=== PATIENT | female | born 1940 | race Caucasian/White ===

== ENCOUNTER 2016-09-08 11:41 | Day surgery (SDC) | payer OTHER ==
--- NOTE | ~2016-09-08 | EGD ---
EGD REPORT [facility] [address] [address] NAME: VERONICA HUSSEIN : 40 STATUS : REG [facility]#: [id number] AGE: 76 ADM/REG DATE : 09/08/16 MR#: [id number] REPORT SERV DATE: 09/08/16 DICTATED BY: VINICIO MUNOZ DATE: 09/08/16 REPORT STATUS : Draft TRANSCRIBED BY: [facility] DATE: 09/08/16 Endoscopy Center Patient Name: Veronica Hussein Date of : 1940 Attending MD: VINICIO MUNOZ MD Procedure Date No Time: 09/08/2016 Procedure: Colonoscopy Indications: Surveillance: Personal history of adenomatous polyps on last colonoscopy > 5 years ago Referring MD: BETI FERNANDEZ Medicines: Propofol per Anesthesia Complications: No immediate complications. Procedure: Pre-Anesthesia Assessment: - ASA Grade Assessment: IV - A patient with severe systemic disease that is a constant threat to life. After I obtained informed consent, the scope was passed under direct vision. Throughout the procedure, the patient's blood pressure, pulse, and oxygen saturations were monitored continuously. The [id number] was introduced through the anus and advanced to the cecum, identified by appendiceal orifice and ileocecal valve. The colonoscopy was performed without difficulty. The patient tolerated the procedure well. The quality of the bowel preparation was good. Findings: The perianal and digital rectal examinations were normal. The colon (entire examined portion) appeared normal. A sessile polyp was found in the cecum. The polyp was 2 mm in size. The polyp was removed with a cold biopsy forceps. Resection and retrieval were complete. Multiple small and large-mouthed diverticula were found in the recto-sigmoid colon, in the sigmoid colon and in the descending colon. Non-bleeding internal hemorrhoids were found during retroflexion and were mild, small and Grade I (internal hemorrhoids that do not prolapse). Impression: - The entire examined colon is normal. - One 2 mm polyp in the cecum. Resected and retrieved. - Diverticulosis in the recto-sigmoid colon, in the sigmoid colon and in the descending colon. - Non-bleeding internal hemorrhoids. Recommendation: - Patient has a contact number available for emergencies. The signs and symptoms of potential delayed complications were discussed with the patient. Return to EGD REPORT [address] [address] NAME: VERONICA HUSSEIN RONNY : 40 STATUS : REG [facility]#: [id number] AGE: 76 ADM/REG DATE : 09/08/16 MR#: [id number] REPORT SERV DATE: 09/08/16 DICTATED BY: VINICIO MUNOZ DATE: 09/08/16 REPORT STATUS : Draft TRANSCRIBED BY: [facility] DATE: 09/08/16 normal activities tomorrow. Written discharge instructions were provided to the patient. - Return to previous diet. - Continue present medications. - Await pathology results. - Repeat colonoscopy in 3 - 5 years for surveillance based on pathology results. - Return to my office as previously scheduled. - Discharge patient to home. Procedure Code(s): --- Professional --- 97179, Colonoscopy, flexible, proximal to splenic flexure; with biopsy, single or multiple Diagnosis Code(s): --- Professional --- K64.0, First degree hemorrhoids K57.30, Diverticulosis of large intestine without perforation or abscess without bleeding D12.0, Benign neoplasm of cecum Z86.010, Personal history of colonic polyps CPT copyright 2013 [employer]. All rights reserved. The codes documented in this report are preliminary and upon tonguer review may be revised to meet current compliance requirements. Vinicio Munoz MD VINICIO MUNOZ MD 09/08/2016 3:16 PM This report has been signed electronically. Number of Addenda: 0 Note Initiated On: 09/08/2016 2:33 PM Scope Withdrawal Time 0 hours 8 minutes 36 seconds [id number] [place] [address]
[~2016-09-08 11:41] MED LIST: ASAB PO; BENTYL20 PO; CAT2 PO; COREG25 PO; DEMA10T PO; DIOVAN HC2 PO; EXFORGE1 TA3 PO; EXFORGE1 TAB PO; GLUCOPHXR PO; GLUCPH PO; HYDROCHLOROT25 MG PO; KAPIDEX60 MG PO; KLOR-CON M2020 MEQ PO; LANTUS SC; LANTUSCART SC; LOP25 PO; LOP50 PO; MAGOX4 PO; MEVACOR PO; NEUR100 PO; NEXIUM40 PO; NORV10 PO; NOVOPEN SC; PLAVIX PO; PRADAXA150 MG PO; PRADAXA75 MG PO; PRAVACHOL40 MG PO; RAN500 PO; RANITIDINE300 MG PO; RYTHMOL SR225 MG PO; SUCR PO; SYN.15 PO; SYN125 PO; SYNTHROID175 MCG PO; TAMBOCOR PO; TEKTUR150 PO; VITAMIN B-121000 MC1 SL; VITAMIN D31000 UNIT PO; VITAMIN D32000 UNI1 PO; VITC500 PO; VOLTAREN1 % TOP; VOLTXR100 PO; ZANAFLEX 4 MG TA4 MG PO; ZOCOR10 PO; ZOCOR40 PO
== END 2016-09-08 23:59 | disposition home or self-care (01) ==
LOC: DMU 11:41
PROVIDERS: Internal Medicine Gastroenterology
PROC: 0DBH8ZX Excision of Cecum, Via Natural or Artificial Opening Endoscopic, Diagnostic (ICD-10-PCS; principal; 2016-09-08 11:30)
DX: D12.0 Benign neoplasm of cecum (principal); K64.0 First degree hemorrhoids; K57.30 Diverticulosis of large intestine without perforation or abscess without bleeding; I10 Essential (primary) hypertension; I48.91 Unspecified atrial fibrillation; E66.01 Morbid (severe) obesity due to excess calories; G47.33 Obstructive sleep apnea (adult) (pediatric); J44.9 Chronic obstructive pulmonary disease, unspecified; K58.9 Irritable bowel syndrome, unspecified; E89.0 Postprocedural hypothyroidism; M81.0 Age-related osteoporosis without current pathological fracture; Z86.010 Personal history of colon polyps; Z86.73 Personal history of transient ischemic attack (TIA), and cerebral infarction without residual deficits; Z99.89 Dependence on other enabling machines and devices; Z88.2 Allergy status to sulfonamides; Z79.899 Other long term (current) drug therapy; Z79.4 Long term (current) use of insulin; Z98.41 Cataract extraction status, right eye; Z98.42 Cataract extraction status, left eye; Z98.890 Other specified postprocedural states
CPT/HCPCS: 82962; 88305